=== PATIENT | female | born 1945 | race Caucasian/White ===

== ENCOUNTER 2016-11-24 11:01 | Outpatient (CLI) | payer MEDICARE, OTHER ==
[2016-08-31 10:26] VITALS: BP 120/68
[2016-11-24 12:10] LABS: BASOPHILS % 0.6 (0.0-1.5); EOSINOPHILS % 2.6 % (0.0-6.8); MEAN CORPUSCULAR HEMOGLOBIN 27.6 pg (28.0-34.0); MONOCYTES # 0.5 # k/uL (0.0-0.9); MONOCYTES % 6.6 % (0.0-11.0)
[2016-11-24 12:38] LABS: eGFR (African) > 60; eGFR (Non-African) > 60
--- NOTE | 2016-11-24 14:03 | OP Clinic Progress Note ---
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 I have been following her for probably 20 years. She is doing well. Her skin has been stable on Dapsone 25 mg once a day. We had stopped her prednisone but presently she has severe joint pain in her knuckles and fingers and morning stiffness lasting an hour. She has been under a lot of stress. Her sister suddenly. She suffers from chronic back pain which is unchanged. She has osteoporosis and has yet to approve Prolia. She has a colonoscopy and apparently everything went well. Her mammogram has been done. PAST MEDICAL AND SURGICAL HISTORY: 1. Colon polyps. 2. Hypertension. 3. Cholecystectomy. 4. Hyperlipidemia. 5. Osteoporosis. PRESENT MEDICATIONS: 1. Dapsone 25 mg daily. 2. Lisinopril 10 mg daily. 3. Crestor 5 mg daily. 4. She has been started on cholestyramine at 1 a day. REVIEW OF SYSTEMS: No fevers, chills, sweats, chest pain, shortness of breath, cough, wheezing, nausea, vomiting, or diarrhea. No numbness or tingling of her extremities and denies overall depression. PHYSICAL EXAMINATION: VITAL SIGNS: T: 97.1, R: 18, heart rate 100, BP: 160/90. HEENT: Sclerae are anicteric. Conjunctivae are pink. No stomatitis or glossitis. LUNGS: Clear with no crackles or wheezing. HEART: Regular rhythm. ABDOMEN: Soft and nontender. VASCULAR: No edema or cyanosis. PERIPHERAL JOINTS: Tenderness but no overt synovitis at all PIPs and MCPs with thumbs unremarkable. DIPs are unremarkable. She has no clubbing and no discoloration. Wrists, elbows, and shoulders are unremarkable. SKIN: Reveals no lesions. IMPRESSION: 1. Urticaria vasculitis, stable. 2. Idiopathic polyarthritis. I am going to check her labs, including [employer] testing. 3. High risk drug. We will check a CBC for her Dapsone usage. I gave her refills. 4. Osteoporosis. Again, I encouraged her to proceed with Prolia 60 mg every 6 months. I will see her back in 4 months. Thank you very much, KAVITHA
== END 2016-11-24 11:02 ==
LOC: RHEU 11:01
PROVIDERS: ATTEND Internal Medicine
DX: M81.0 Age-related osteoporosis without current pathological fracture (principal); M13.0 Polyarthritis, unspecified
CPT/HCPCS: 36415; 80053; 85025; 85651; 86140; 99213; G0463

== ENCOUNTER 2016-11-28 11:45 | Outpatient (CLI) | payer MEDICARE, OTHER ==
[2016-08-31 10:26] VITALS: BP 120/68
[2016-11-28] MEDS ORDERED: DENOSUMAB 60 MG/ML ML SQ ONE (12:00)
== END 2016-11-28 12:00 ==
LOC: INF 11:45
PROVIDERS: ATTEND Internal Medicine
DX: M13.0 Polyarthritis, unspecified (principal); Z79.899 Other long term (current) drug therapy
CPT/HCPCS: 96372; J0897

== ENCOUNTER 2017-01-09 14:09 | Outpatient (CLI) | payer MEDICARE, OTHER ==
[2016-08-31 10:26] VITALS: BP 120/68
== END 2017-01-09 14:15 ==
LOC: POD 14:09
PROVIDERS: ATTEND Podiatrist
DX: B35.1 Tinea unguium (principal); M79.674 Pain in right toe(s); M79.675 Pain in left toe(s); M67.471 Ganglion, right ankle and foot
CPT/HCPCS: G0463

== ENCOUNTER 2017-03-23 10:37 | Outpatient (CLI) | payer MEDICARE, OTHER ==
[2016-08-31 10:26] VITALS: BP 120/68
--- NOTE | 2017-03-26 10:14 | OP Clinic Progress Note ---
REASON FOR VISIT: Yareli Gage returns for follow up of urticaria vasculitis of over 20 years duration. Her skin has been doing well with no itching or rashes. When I last saw her, she was having severe joint pain in the knuckles, morning stiffness lasting an hour, and numbness in her right hand. We resumed her prednisone and all her symptoms resolved, including the numbness in her right hand. She otherwise has had no new medical problems and no fevers, chills, sweats, chest pain, shortness of breath, cough, wheezing, nausea, vomiting, or diarrhea. PAST MEDICAL HISTORY: 1. Colon polyps. 2. Hypertension. 3. Hyperlipidemia. 4. Osteoporosis. 5. Urticaria vasculitis. PAST SURGICAL HISTORY: 1. Cholecystectomy. 2. Hysterectomy. 3. Ankle surgery. 4. Wrist surgery. PRESENT MEDICATIONS: 1. Dapsone 25 mg 3 times a day. 2. Prednisone 5 mg daily. 3. Lisinopril 20 mg twice a day. 4. Crestor 5 mg daily. 5. Cholestyramine. REVIEW OF SYSTEMS: As above. PHYSICAL EXAMINATION: GENERAL APPEARANCE: On exam, she looks well. VITAL SIGNS: Vital signs are stable. Weight: 114. Height: 4 feet 11 inches. T: 97.2, R: 18, heart rate of 80, BP: 168/86. HEENT: Sclerae are anicteric. Conjunctivae are pink. No stomatitis or glossitis. LUNGS: Clear bilaterally with no crackles or wheezing. HEART: Regular rhythm. ABDOMEN: Soft and nontender. VASCULAR: No edema or cyanosis. She still has a little swelling at the ventral aspect of her right wrist. PERIPHERAL JOINTS: Hard bony swelling at the DIPs and PIPs. MCPs are unremarkable. Elbows and shoulders are unremarkable. DIAGNOSTIC STUDIES: [employer] testing returned. FEI was negative. IgA and IgM rheumatoid factors were negative. CCP antibody was negative. Anti-MCV antibody was negative. Cardiolipin antibodies were negative. Her C-reactive protein was 0.18. CMP was unremarkable. CBC, white count was 7.9, hemoglobin was 13.7. Sedimentation rate was 20. IMPRESSION: 1. Urticaria vasculitis, stable. 2. Osteoarthritis, stable. 3. Idiopathic polyarthritis, improved on 5 mg of prednisone. 4. Right carpal tunnel syndrome, improved on prednisone. 5. High risk drug. No evidence of drug toxicity. PLAN: We will check her labs today. Thank you very much. cc: Dr. Ritchie PLUMMER
== END 2017-03-23 10:40 ==
LOC: RHEU 10:37
PROVIDERS: ATTEND Internal Medicine
DX: I77.6 Arteritis, unspecified (principal)
CPT/HCPCS: G0463

== ENCOUNTER 2017-04-04 10:33 | Outpatient (CLI) | payer MEDICARE, OTHER ==
[2016-08-31 10:26] VITALS: BP 120/68
[2017-04-04 11:08] LABS: BASOPHILS % 0.8 (0.0-1.5); EOSINOPHILS % 3.5 % (0.0-6.8); MEAN CORPUSCULAR HEMOGLOBIN 29.7 pg (28.0-34.0); MONOCYTES % 6.7 % (0.0-11.0); NEUTROPHILS # 4.5 # k/uL (1.4-7.7)
[2017-04-04 11:28] LABS: eGFR (African) > 60; eGFR (Non-African) > 60
== END 2017-04-04 10:34 ==
LOC: LAB 10:33
PROVIDERS: ATTEND Internal Medicine
DX: Z79.899 Other long term (current) drug therapy (principal)
CPT/HCPCS: 36415; 80053; 85025; 85651

== ENCOUNTER 2017-04-10 12:49 | Outpatient (CLI) | payer MEDICARE, OTHER ==
[2016-08-31 10:26] VITALS: BP 120/68
== END 2017-04-10 12:50 ==
LOC: POD 12:49
PROVIDERS: ATTEND Podiatrist
DX: B35.1 Tinea unguium (principal); M79.674 Pain in right toe(s); M79.675 Pain in left toe(s)
CPT/HCPCS: 11721; G0463

== ENCOUNTER 2017-04-21 13:08 | Emergency (ER) | payer MEDICARE, OTHER ==
--- NOTE | 2017-04-21 13:14 | ED Physician Documentation ---
Skin Rash - HISTORIAN Historian: patient - HPI Chief Complaint: Skin Rash Onset: days ago (3 days) Timing: still present Duration: persistent since Location: other (LUE) Quality: painful Identified Cause?: No Context: Other Exposure: other (shingles) Further Comments: yes - ROS CONST: none - PAST HX Past History: hypertension, other (osteoporosis) Other History: chicken pox Surgeries/Procedures: Yes (Cholecystectomy, DAVID) Allergies/Adverse Reactions: Allergies Allergy/AdvReac Type Severity Reaction Status Date / Time Penicillins Allergy Severe Anaphylaxis Verified 12/13/12 09:32 Sulfa (Sulfonamide Allergy Severe Anaphylaxis Verified 12/13/12 09:32 Antibiotics) [Sulfa(Sulfonamide Antibiotics)] meloxicam Allergy Intermediate Verified 12/15/12 18:25 Home Medications: Ambulatory Orders Medication Instructions Recorded Dapsone [Dapsone] 25 mg PO D 12/13/12 Lisinopril [Prinivil] 10 mg PO QD PRN #10 tablet 12/13/12 Prednisone [Prednisone] 5 mg PO D 12/13/12 Rosuvastatin Calcium [Crestor] 5 mg PO D 12/13/12 Clindamycin HCl [Cleocin HCl] 300 mg PO QID #40 capsule 09/26/13 Famciclovir [Famvir] 500 mg PO TID #21 tablet 04/21/17 - SOCIAL HX Smoking History: greater than 1 pack/day Alcohol Use: none Drug Use: none - FAMILY HX Family History: none - VITAL SIGNS Vital Signs: Vital Signs Temp Pulse Resp BP Pulse Ox 97 F L 78 18 155/88 92 04/21/17 13:10 04/21/17 14:00 04/21/17 14:00 04/21/17 14:00 04/21/17 14:00 - REVIEWED ASSESSMENTS Nursing Assessment Reviewed: Yes Vitals Reviewed: Yes Skin Rash Physical Exam - EXAM General Appearance: alert, mild distress Skin: other (shingles type rash over the c7-8 dermatome) Location: extremities (LUE) Character: asymmetric, vesicular Symptoms: No: warmth, tenderness Neck: trachea midline, no swelling Respiratory: no resp distress, chest non-tender, breath sounds normal. No: wheezes, rales, rhonchi CVS: reg. rate & rhythm, heart sounds nml, murmur Neuro/Psych: mood/affect nml, disoriented Discharge Clincal Impression: Shingles Qualifiers: Herpes zoster complications: without complications Qualified Code(s): B02.9 - Zoster without complications Prescriptions: Famciclovir [Famvir] 500 mg PO TID #21 tablet Referrals: Ritchie Rodriguez MD [Primary Care Provider] - 2 Days Additional Instructions: Avoid a lot of scrubbing over the rash. Take the Famvir as directed. Taper down the prednisone down to 2.5 mg once a day for one week then stop. Watch for any sings of infection. Home Medications: Ambulatory Orders Dapsone [Dapsone] 25 mg PO D 12/13/12 Lisinopril [Prinivil] 10 mg PO QD PRN #10 tablet 12/13/12 Prednisone [Prednisone] 5 mg PO D 12/13/12 Rosuvastatin Calcium [Crestor] 5 mg PO D 12/13/12 Clindamycin HCl [Cleocin HCl] 300 mg PO QID #40 capsule 09/26/13 Famciclovir [Famvir] 500 mg PO TID #21 tablet 04/21/17 Condition: Stable Disposition: 01 HOME, SELF-CARE Decision to Admit: NO Date of Decison to Admit: 04/21/17 Decision Time: 13:46
[2017-04-21 14:01] VITALS: BP 155/88
== END 2017-04-21 14:00 | disposition home or self-care (01) ==
LOC: ED 13:08
DX: B02.9 Zoster without complications (principal)
CPT/HCPCS: 99283

== ENCOUNTER 2017-07-20 10:34 | Outpatient (CLI) | payer MEDICARE, OTHER ==
--- NOTE | 2017-07-20 11:21 | OP Clinic Progress Note ---
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 Her skin is doing well with no itching and no rashes. She continues to have a little bit of joint pain in her knuckles and morning stiffness. Dr. Marley stopped her prednisone in April when she presented to the emergency room with shingles involving the left side of her face, neck, and left arm. Presently, she comes in today and she is complaining of dizziness and the left side of her face and ear bother her. The room is not spinning. She has had no nausea. She has been unable to drive. She has had no significant chest pain or shortness of breath, coughing or wheezing. PAST MEDICAL HISTORY: 1. Colon polyps. 2. Hypertension. 3. Hyperlipidemia. 4. Osteoporosis. 5. Urticaria vasculitis. 6. Cholecystectomy. 7. Hysterectomy. 8. Ankle surgery. 9. Wrist surgery. PRESENT MEDICATIONS: 1. Dapsone 25 mg 3 times a day. 2. Lisinopril 20 mg twice a day. 3. Crestor 5 mg daily. 4. Cholestyramine. PHYSICAL EXAMINATION: GENERAL: She is in no acute distress. VITAL SIGNS: However, pulse is 110, BP: 150/88, pulse oximetry is 88%, respiratory rate of 18, T: 96.9. Height: 4 feet 11 inches. Weight: 110. HEENT: Sclerae are anicteric. Conjunctivae are pink. No stomatitis or glossitis. External ears and nose are unremarkable. Otoscopic examination of the left ear reveals a little wax. No lesions. No erythema. NECK: She has no neck stiffness. No cervical nodes. LUNGS: Lungs with some diffuse wheezing. No E to A changes. HEART: Tachycardic. Regular rate and rhythm. No extra heart sounds. ABDOMEN: Soft and nontender. VASCULAR: No edema or cyanosis. PERIPHERAL JOINTS: No synovitis. IMPRESSION: 1. Urticaria vasculitis, stable. 2. Dizziness. I am putting her back on prednisone 5 mg daily for both her skin and her joints. 3. Osteoarthritis. 4. History of right carpal tunnel syndrome. 5. Tachycardia. 6. Postherpetic neuralgia. PLAN: 1. We will check an EKG, chest x-ray, CBC, CMP, sedimentation rate, and CRP. 2. I have asked her to contact Dr. Rodriguez, her primary physician. 3. Await the results. cc: Dr. Ritchie PLUMMER
== END 2017-07-20 10:35 ==
LOC: RHEU 10:34
PROVIDERS: ATTEND Internal Medicine
DX: L50.8 Other urticaria (principal); R42 Dizziness and giddiness; M19.90 Unspecified osteoarthritis, unspecified site; R00.0 Tachycardia, unspecified
CPT/HCPCS: G0463

== ENCOUNTER 2017-08-21 14:49 | Outpatient (CLI) | payer MEDICARE, OTHER | END 2017-08-21 14:50 | LOC: POD 14:49 | PROVIDERS: ATTEND Podiatrist | DX: B35.1 Tinea unguium (principal); M79.674 Pain in right toe(s); M79.675 Pain in left toe(s); M67.471 Ganglion, right ankle and foot | CPT/HCPCS: 11721; G0463 ==

== ENCOUNTER 2017-11-30 13:01 | Outpatient (CLI) | payer MEDICARE, OTHER | END 2017-11-30 13:02 | LOC: POD 13:01 | PROVIDERS: ATTEND Podiatrist | DX: B35.1 Tinea unguium (principal); M79.674 Pain in right toe(s); M79.675 Pain in left toe(s); M67.471 Ganglion, right ankle and foot | CPT/HCPCS: 11721; G0463 ==

== ENCOUNTER 2017-12-21 13:41 | Outpatient (CLI) | payer MEDICARE, OTHER ==
--- NOTE | 2017-12-24 12:28 | OP Clinic Progress Note ---
REASON FOR VISIT: Yareli Gage returns for follow up on her urticarial vasculitis. She is doing well. She recently had a little lesion on the left restorationist region and had a lesion on her butt but those have resolved. Otherwise, no new medical problems. She still has a little bit of vertigo. She is still having difficulty with shingles involving the left side of her face , neck, and left arm and some weakness in the left 4th finger. It is a little uncomfortable but not painful. She otherwise has no new complaints. PAST MEDICAL HISTORY: 1. Colon polyps. 2. Hypertension. 3. Hyperlipidemia. 4. Osteoporosis. 5. Urticarial vasculitis. 6. Cholecystectomy. 7. Hysterectomy. 8. Ankle surgery. 9. Wrist surgery. PRESENT MEDICATIONS: 1. Dapsone 25 mg 3 times a day. 2. Lisinopril 20 mg once a day. 3. Amlodipine 5 mg once a day. 4. Crestor 5 mg daily. 5. Cholestyramine. PHYSICAL EXAMINATION: GENERAL: She looks well. VITAL SIGNS: Height: 4 feet 11 inches. Weight: 114. T: 97, R: 20, heart rate 100, BP: 160/75. HEENT: Sclerae are anicteric. Conjunctivae are pink. No stomatitis or glossitis. LUNGS: Clear. HEART: Regular rhythm. ABDOMEN: Soft. VASCULAR: No edema or cyanosis. SKIN: Some senile purpura but otherwise no active lesions. IMPRESSION: 1. Urticarial vasculitis, stable on Dapsone and low-dose prednisone. 2. Postherpetic neuralgia, paucisymptomatic, left arm. 3. Upcoming cataract surgery. PLAN: She has a follow up with Dr. Ritchie Rodriguez in the near future and we will check her labs at that time for drug toxicity and disease activity. cc: Dr. Ritchie PLUMMER
== END 2017-12-21 13:42 ==
LOC: RHEU 13:41
PROVIDERS: ATTEND Internal Medicine
DX: L95.8 Other vasculitis limited to the skin (principal); B02.29 Other postherpetic nervous system involvement
CPT/HCPCS: 99213; G0463

== ENCOUNTER 2018-03-01 13:36 | Outpatient (CLI) | payer MEDICARE, OTHER | END 2018-03-01 13:37 | LOC: POD 13:36 | PROVIDERS: ATTEND Podiatrist | DX: B35.1 Tinea unguium (principal); M79.674 Pain in right toe(s); M79.675 Pain in left toe(s); M67.471 Ganglion, right ankle and foot | CPT/HCPCS: 11721; G0463 ==

== ENCOUNTER 2018-04-19 10:47 | Outpatient (CLI) | payer MEDICARE, OTHER ==
--- NOTE | 2018-04-25 07:32 | OP Clinic Progress Note ---
REASON FOR VISIT: Yareli Gage returns for follow up of urticarial vasculitis. From that point of view, she is doing well with no new rashes or itching. She is, however, complaining of one, skin bruising, and two, swelling of the legs. Otherwise, no fevers, chills, sweats, chest pain, shortness of breath, cough, wheezing, nausea, vomiting, or diarrhea. PAST MEDICAL AND SURGICAL HISTORY: 1. Colon polyps. 2. Hypertension. 3. Hyperlipidemia, 4. Osteoporosis. 5. Urticarial vasculitis. 6. Cholecystectomy. 7. Hysterectomy. 8. Surgery on ankle and wrist. PRESENT MEDICATIONS: 1. Dapsone 25 mg 3 times a day. 2. Lisinopril 20 mg once a day. 3. Amlodipine 5 mg once a day. 4. Crestor 5 mg daily. 5. Cholestyramine. PHYSICAL EXAMINATION: GENERAL: She looks well. VITAL SIGNS: Vital signs are stable. Height: 4 feet 11 inches. Weight: 113 pounds. T: 98.1, heart rate 110, R: 20, BP: 150/90 HEENT: Sclerae are anicteric. Conjunctivae are pink. No stomatitis. o LUNGS: Clear. HEART: Regular rate and rhythm. No extra heart sounds. No rubs or murmurs. ABDOMEN: Soft and nontender. VASCULAR: Shows trace edema at the ankles. She has no hepatojugular reflex. No JVD. SKIN: No rashes. She does have some bruising on lower and upper extremities. LABORATORIES: Her labs from March 14 were reviewed and are in the chart. White count was slightly elevated at 11.7, otherwise, hemoglobin was 14.1, platelets were normal. Sedimentation rate was 4. IMPRESSION: 1. Urticarial vasculitis, stable. 2. Peripheral edema. Possibly due to amlodipine. 3. Postherpetic neuralgia of left arm, resolved. PLAN: 1. We will try to decrease her prednisone to 2.5 mg daily for 2 weeks and then stop. 2. She is going to stop amlodipine and monitor her blood pressure and report to her primary physician, Dr. Rodriguez. 3. I will see her in 4 months. Thank you very much. cc: Dr. Ricthie PLUMMER
== END 2018-04-19 12:20 ==
LOC: RHEU 10:47
PROVIDERS: ATTEND Internal Medicine
DX: L95.8 Other vasculitis limited to the skin (principal); R60.9 Edema, unspecified; Z87.39 Personal history of other diseases of the musculoskeletal system and connective tissue
CPT/HCPCS: 99214; G0463

== ENCOUNTER 2018-06-04 11:05 | Outpatient (CLI) | payer MEDICARE, OTHER ==
--- NOTE | 2018-06-04 17:24 | Diagnostic Imaging Report ---
[facility] [id number] [facility].[address] [id number] Report Submission Date: Jun 04, 2018 11:39:34 AM CDT Patient Study Name: YARELI CAMACHO Date: Jun 04, 2018 11:19:49 AM CDT Modality Type: US Gender: F Description: : 41 Institution: [facility] Physician: MARCOS THOMAS Left lower extremity venous duplex History: Pain in the foot Duplex and color flow imaging was performed through the left lower extremity femoral popliteal venous system revealing no filling defects with normal compressibility and normal augmentation from the common femoral vein to the popliteal vein. The calf veins are not well visualized. Impression: No evidence for deep venous thrombosis. The calf veins are not well visualized. Electronically signed on Jun 04, 2018 11:39:34 AM CDT by: Yareli PLUMMER
== END 2018-06-04 11:06 ==
LOC: RAD 11:05
PROVIDERS: ATTEND Family Medicine
DX: M79.605 Pain in left leg (principal)
CPT/HCPCS: 93971

== ENCOUNTER 2018-08-23 10:13 | Outpatient (CLI) | payer MEDICARE, OTHER ==
--- NOTE | 2018-08-26 10:48 | OP Clinic Progress Note ---
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 She is having no rashes or itching. When I last saw her, she had swelling of her legs. We stopped her amlodipine and swelling has resolved. She only complains today of some neck pain. She has been busy at home cleaning windows. It has been present for a week. It does not radiate into the shoulder or arm. She has had no fevers, chills, sweats, chest pain, shortness of breath, cough or wheezing and no injury. PAST MEDICAL AND SURGICAL HISTORY: 1. Colon polyps. 2. Hypertension. 3. Hyperlipidemia. 4. Osteoporosis. 5. Cholecystectomy. 6. Hysterectomy. PRESENT MEDICATIONS: 1. Dapsone 25 mg 3 times a day. 2. Lisinopril. 3. Crestor 5 mg daily. 4. Cholestyramine. PHYSICAL EXAMINATION: GENERAL: On exam, she looks well. VITAL SIGNS: BP: 150/99, P: 98. R: 18, T: 98.2. Pain is 6/10. HEENT: Sclerae are anicteric. Conjunctivae are pink. No stomatitis or glossitis. LUNGS: Clear bilaterally with no crackles or wheezing. HEART: Regular rate and rhythm. ABDOMEN: Soft and nontender. VASCULAR: No edema or cyanosis. PERIPHERAL JOINTS: Hard bony swelling at the DIPs and PIPs, otherwise, no synovitis and good range of motion throughout. LABORATORY: Her labs from March and May were reviewed and included in the chart. Note, hemoglobin was 14.3, hematocrit 44.2, white count 8.4. IMPRESSION: Urticarial vasculitis, stable. PLAN: 1. Continue Dapsone. 2. She will get labs done at the end of the month. 3. I will see her back in 4 months. Thank you very much. cc: Dr. Ritchie PLUMMER
== END 2018-08-23 10:14 ==
LOC: RHEU 10:13
PROVIDERS: ATTEND Internal Medicine
DX: L95.8 Other vasculitis limited to the skin (principal)
CPT/HCPCS: 99214; G0463